=== PATIENT | male | born 1960 | race Caucasian/White ===

== ENCOUNTER 2016-07-05 16:27 | Observation (INO) | payer BC, OTHER ==
[~2016-07-05] VITALS: Ht 182.9 cm; Wt 100.0 kg
[2016-07-05] VITALS (7 sets, daily range): BP systolic 102–157; BP diastolic 74–106; PULSE 72–106; RESP 18–20; TEMP 97.9–98.3; O2SAT 96–97
[~2016-07-05 16:27] MED LIST: ATEN1TAB55 OR; CYCL-36 PO; IBUP600T26 PO; IPRAAER IN; PERC5TAB12 PO; embrel
[2016-07-05 17:11] LABS: AUTOMATED NEUTROPHIL # 3.9 TH/MM3 (1.8-7.7); BASOPHIL % 0.7 % (0.0-2.0); EOSINOPHIL # 0.2 TH/MM3 (0-0.4); EOSINOPHIL % 3.2 % (0.0-4.0); HEMATOCRIT 39.7 % (39.0-51.0); HEMO FLAGS DIFF FINAL; LYMPH % 27.2 % (9.0-44.0); LYMPHOCYTE # 1.7 TH/MM3 (1.0-4.8); MEAN CELL VOLUME 89.2 FL (80.0-100.0); MEAN CORPUSCULAR HEMOGLOBIN 31.1 PG (27.0-34.0); MEAN CORPUSCULAR HGB CONC 34.9 % (32.0-36.0); MONO % 6.7 % (0.0-8.0); NEUT % 62.2 % (16.0-70.0); PLATELET COUNT 205 TH/MM3 (150-450); RED BLOOD COUNT 4.46 MIL/MM3 (4.50-5.90); RED CELL DISTRIBUTION WIDTH 13.2 % (11.6-17.2); WHITE BLOOD COUNT 6.2 TH/MM3 (4.0-11.0)
--- NOTE | 2016-07-05 17:12 | PD ---
HPI Chief Complaint: Chest Pain Time Seen by Provider: 17:11 Travel History International Travel<30 days: No Contact w/Intl Traveler<30days: No Traveled to known affect area: No History of Present Illness HPI 56-year-old male with history of hypertension, left lobectomy status post spontaneous pneumothorax presents to the ED for evaluation of a 3 day history of chest pain, radiating to the back and shortness of breath. Onset at work. No alleviating or exacerbating factors reported. The patient denies palpitations, nausea, vomiting, abdominal pain, changes in bowel habits. Denies cough, fevers. Patient states that he has had medication changes recently from atenolol to amlodipine. He is followed by Dr. Rich whom he saw yesterday and referred him here today. PFSH Past Medical History Arthritis: Yes (HANDS) Asthma: Yes Blood Disorders: No Anxiety: No Depression: No Cancer: No Cardiovascular Problems: Yes Diminished Hearing: No Endocrine: No Gastrointestinal Disorders: No Genitourinary: No Hypertension: Yes Immune Disorder: No Implanted Vascular Access Dvce: No Neurologic: No Psychiatric: No Respiratory: Yes (pneumothorax 2010) Integumentary: Yes (PSORIASIS) Seizures: No PNEUMOCCOCAL Vaccine (Year): 2 Past Surgical History Abdominal Surgery: No Cardiac Surgery: No Neurologic Surgery: No Thoracic Surgery: Yes (LEFT UPPER LOBECTOMY BY TOM ) Other Surgery: Yes Social History Alcohol Use: No (18 YEARS SOBRIETY) Tobacco Use: No (30 year hx) Substance Use: No Allergies-Medications (Allergen,Severity, Reaction): Coded Allergies: Penicillin (Verified Allergy, Severe, 07/05/16) Uncoded Allergies: ALL CILLINS (Allergy, Severe, Rash, 02/08/04) Reported Meds & Prescriptions Reported Meds & Active Scripts Active Reported Stelara Inj (Ustekinumab Inj) 130 Mg/26 Ml Inj 90 Mg IM Q WEKS Ibuprofen 600 Mg Tab 600 Mg PO Q6H PRN Amlodipine (Amlodipine Besylate) 5 Mg Tab 5 Mg PO DAILY Atenolol 25 Mg Tab 25 Mg PO DAILY Review of Systems Except as stated in HPI: all other systems reviewed are Neg Physical Exam Narrative GENERAL: Well-nourished, well-developed white male in no acute distress. SKIN: Warm and dry. HEAD: Normocephalic. EYES: No scleral icterus. No injection or drainage. NECK: Supple, trachea midline. No JVD or lymphadenopathy. CARDIOVASCULAR: Regular rate and rhythm without murmurs, gallops, or rubs. 2+ DP and radial pulses bilaterally. No tenderness to palpation of the precordium. RESPIRATORY: Breath sounds clear to auscultation, diminished in the left upper lobe. No accessory muscle use. GASTROINTESTINAL: Abdomen soft, non-tender, nondistended. Active bowel sounds. MUSCULOSKELETAL: No cyanosis, or edema. Patient is ambulatory and moves extremities spontaneously. NEUROLOGICAL: Awake and alert. Cranial nerves II through XII intact. Motor and sensory grossly within normal limits. Five out of 5 muscle strength in all muscle groups. Normal speech. BACK: Nontender without obvious deformity. No CVA tenderness. No reproducible tenderness of the back. Data Data Last Documented VS Vital Signs Date Time Temp Pulse Resp B/P Pulse Ox O2 Delivery O2 Flow Rate FiO2 07/05/16 18:27 83 18 140/82 97 Nasal Cannula 2 07/05/16 16:31 98.1 Orders Electrocardiogram (07/05/16 ) Complete Blood Count With Diff (07/05/16 16:33) Basic Metabolic Panel (Bmp) (07/05/16 16:33) Ckmb (Isoenzyme) Profile (07/05/16 16:33) Troponin I (07/05/16 16:33) Prothrombin Time / Inr (Pt) (07/05/16 17:12) Act Partial Throm Time (Ptt) (07/05/16 17:12) Cta Thor Abd Aorta W Iv C W3d (07/05/16 ) CKMB (07/05/16 16:51) CKMB% (07/05/16 16:51) Clonidine (Catapres) (07/05/16 17:45) Morphine Inj (Morphine Inj) (07/05/16 18:00) Iohexol 350 Inj (Omnipaque 350 Inj) (07/05/16 18:16) Hepatic Functional Panel (07/05/16 18:42) Morphine Inj (Morphine Inj) (07/05/16 20:00) Place In Observation (07/05/16 20:23) Activity Bed Rest With Brp (07/05/16 20:23) Vital Signs (Adult) Q4H (07/05/16 20:23) Cardiac Rhythm .As Directed (07/05/16 20:23) ^ Notify Dr: Other .PRN (07/05/16 20:23) ^ Notify . Parameters (07/05/16 20:23) Resp Oxygen Nasal Cannula (07/05/16 ) Diet Npo (07/06/16 Breakfast) Ckmb (Isoenzyme) Profile (07/05/16 20:23) Ckmb (Isoenzyme) Profile (07/05/16 23:23) Troponin I (07/05/16 20:23) Troponin I (07/05/16 23:23) Electrocardiogram (07/05/16 20:23) Electrocardiogram (07/05/16 23:23) ^ Obtain (07/05/16 20:23) Sodium Chlor 0.9% 1000 Ml Inj (Ns 1000 M (07/05/16 20:23) Sodium Chloride 0.9% Flush (Ns Flush) (07/05/16 20:30) Sodium Chloride 0.9% Flush (Ns Flush) (07/05/16 21:00) Admit Order (Ed Use Only) (07/05/16 20:25) Labs Laboratory Tests Test 07/05/16 07/05/16 16:51 19:05 White Blood Count 6.2 TH/MM3 Red Blood Count 4.46 MIL/MM3 Hemoglobin 13.9 GM/DL Hematocrit 39.7 % Mean Corpuscular Volume 89.2 FL Mean Corpuscular Hemoglobin 31.1 PG Mean Corpuscular Hemoglobin 34.9 % Concent Red Cell Distribution Width 13.2 % Platelet Count 205 TH/MM3 Mean Platelet Volume 7.5 FL Neutrophils (%) (Auto) 62.2 % Lymphocytes (%) (Auto) 27.2 % Monocytes (%) (Auto) 6.7 % Eosinophils (%) (Auto) 3.2 % Basophils (%) (Auto) 0.7 % Neutrophils # (Auto) 3.9 TH/MM3 Lymphocytes # (Auto) 1.7 TH/MM3 Monocytes # (Auto) 0.4 TH/MM3 Eosinophils # (Auto) 0.2 TH/MM3 Basophils # (Auto) 0.0 TH/MM3 CBC Comment DIFF FINAL Differential Comment Sodium Level 139 MEQ/L Potassium Level 3.9 MEQ/L Chloride Level 107 MEQ/L Carbon Dioxide Level 25.4 MEQ/L Anion Gap 7 MEQ/L Blood Urea Nitrogen 23 MG/DL Creatinine 1.02 MG/DL Estimat Glomerular Filtration 75 ML/MIN Rate Random Glucose 95 MG/DL Calcium Level 9.5 MG/DL Total Bilirubin 0.4 MG/DL Direct Bilirubin 0.1 MG/DL Indirect Bilirubin 0.3 MG/DL Aspartate Amino Transf 21 U/L (AST/SGOT) Alanine Aminotransferase 29 U/L (ALT/SGPT) Alkaline Phosphatase 64 U/L Total Creatine Kinase 229 U/L Creatine Kinase MB 3.8 NG/ML Troponin I LESS THAN 0.02 NG/ML Total Protein 7.9 GM/DL Albumin 4.3 GM/DL Prothrombin Time 11.4 SEC Prothromb Time International 1.0 RATIO Ratio Activated Partial 32.4 SEC Thromboplast Time MDM Medical Decision Making Medical Screen Exam Complete: Yes Emergency Medical Condition: Yes Interpretation(s) EKG rate 97, sinus rhythm. CA interval 148, QRS 84. QTC 415ms. Normal axis. No ischemic changes. Reviewed by Dr. Kincaid. Differential Diagnosis Atypical chest pain versus spontaneous pneumothorax versus dissecting aneurysm versus ACS versus pneumonia versus other Narrative Course 56-year-old male with history of hypertension, left lobectomy status post spontaneous pneumothorax presents to the ED for evaluation of a 3 day history of chest pain, radiating to the back and shortness of breath. Onset at work yesterday. No alleviating or exacerbating factors reported. The patient denies palpitations, nausea, vomiting, abdominal pain, changes in bowel habits. Denies cough, fevers. Patient states that he has had medication changes recently from atenolol to amlodipine. He is followed by Dr. Rich whom he saw yesterday and referred him here today. Vitals reviewed. Patient is tachycardic, hypertensive 157/106 on presentation. Regular rate and rhythm without appreciable murmurs, rubs or gallops. No tenderness palpation of the precordium or the back. Diminished lung sounds in the left upper lobe area, breath sounds clear. No lower extremity edema. IV was established, patient was transferred to the medical pod for further evaluation. CBC: WBC 6.2. Hemoglobin 13.9 INR 1.0. CMP: BUN 23. Creatinine 1.02. No elevations of LFTs. Cardiac enzymes: Troponin less than 0.02. CK-MB 3.8. CTA abdominal and thoracic aorta: Intact aorta, coronary artery calcifications, fatty liver I discussed the patient, workup and plan of care with Dr. Mg who agrees. Discussed the results of the workup and plan of care with the patient and his who are amenable to observation admission. We'll admit the patient to the chest pain center for serial cardiac enzymes and EKGs, possible stress test. Please see chest pain center notes for disposition. Franny Davison Jul 05, 2016 17:12
[2016-07-05 17:27] LABS: ANION GAP 7 MEQ/L (5-15); BICARBONATE 25.4 MEQ/L (21.0-32.0); BLOOD UREA NITROGEN 23 MG/DL (7-18); CHLORIDE 107 MEQ/L (98-107); GLOMERULAR FILTRATION RATE 75 ML/MIN (>89); POTASSIUM 3.9 MEQ/L (3.5-5.1); SODIUM (NA) 139 MEQ/L (136-145)
[2016-07-05 17:31] LABS: CREATINE KINASE 229 U/L (39-308)
[2016-07-05] MEDS ORDERED: IBUP-232 PO (17:35)
[2016-07-05] MEDS ORDERED: ATEN25TA PO (17:35)
[2016-07-05] MEDS ORDERED: AMLO5TAB2 PO (17:35)
[2016-07-05] MEDS ORDERED: USTE1INJ IM (17:35)
[2016-07-05 17:44] LABS: CKMB 3.8 NG/ML (0.5-3.6)
[2016-07-05] MEDS ORDERED: cloNIDine HCL 0.2 MG TAB PO ONE (17:45)
[2016-07-05] MEDS ORDERED: MORPHINE SULFATE 4 MG/ML INJ IV PUSH ONE ×2 (18:00→20:00)
[2016-07-05] MEDS ORDERED: IOHEXOL 350 MG/ML 10 ML VIAL (for RAD DIAG) IV ONE (18:16)
--- NOTE | 2016-07-05 19:00 | RADRPT ---
EXAM DATE/TIME: 07/05/2016 18:14 [facility] COMPARISON: No previous studies available for comparison. INDICATIONS : Chest pain radiating to back for 3 days; hypertension and left lobectomy. IV CONTRAST: 99 cc Omnipaque 350 (iohexol) IV RADIATION DOSE: 17.10 CTDIvol (mGy) MEDICAL HISTORY : Hypertension. Pneumothorax. SURGICAL HISTORY : Lobectomy. ENCOUNTER: Initial ACUITY: 3 days PAIN SCALE: 5/10 LOCATION: chest TECHNIQUE: Volumetric scanning was performed using a multi-row detector CT scanner. The data was post processed with a variety of visualization algorithms including full volume maximum intensity pr ojection, multi-planar sliding thin slab reformation, curved planar reformation, and surface renderin g techniques. Using automated exposure control and adjustment of the mA and/or kV according to patie nt size, radiation dose was kept as low as reasonably achievable to obtain optimal diagnostic quality images. FINDINGS: The thoracic and abdominal aorta is normal in size. There are scattered atheroscleroti c calcifications throughout the arterial system. The great vessel origins are normal. Coronary yuki ry calcifications are present. The celiac, SMA, JULIO, and renal arteries appear grossly normal. The arterial structures within the pelvis are patent. There is some minimal hazy density seen at the posterior lung bases likely related to dependent atele ctasis. There is some decreased density in the liver likely related to some degree of fatty infiltra tion. The spleen, pancreas, adrenal glands and kidneys appear grossly normal. The bowel is unremark able. The pelvic structures are grossly intact. CONCLUSION: 1. The aorta is intact. 2. Coronary artery calcifications. 3. Some degree of suspected fatty infiltration of the liver. Titus Allred MD on July 05, 2016 at 18:51 Board Certified Radiologist. This report was verified electronically.
[2016-07-05 19:37] LABS: APTT (PATIENT) 32.4 SEC (24.3-30.1); PROTHROMBIN TIME - PATIENT 11.4 SEC (9.8-11.6)
[2016-07-05 19:51] LABS: INDIRECT BILIRUBIN 0.3 MG/DL (0.0-0.8); TOTAL BILIRUBIN ADULT 0.4 MG/DL (0.2-1.0)
[2016-07-05] MEDS ORDERED: SODIUM CHLORIDE 0.9% FLUSH 5 ML FLUSH IVF PRN (20:30)
[2016-07-05] MEDS: SODIUM CHLORIDE 0.9% FLUSH 5 ML FLUSH IVF SCH (21:00)
[2016-07-05] MEDS: SODIUM CHLOR 0.9% 1000 ML INJ 1,000 ML IV SCH (21:51)
[2016-07-05 22:29] LABS: CREATINE KINASE 175 U/L (39-308)
[2016-07-05 22:41] LABS: CKMB 3.3 NG/ML (0.5-3.6)
[2016-07-06] VITALS (9 sets, daily range): BP systolic 108–117; BP diastolic 66–77; PULSE 66–79; RESP 16–20; TEMP 97.6–98.4; O2SAT 97–98
[2016-07-06 01:43] LABS: CREATINE KINASE 150 U/L (39-308)
[2016-07-06 01:56] LABS: CKMB 2.8 NG/ML (0.5-3.6)
[2016-07-06] MEDS ORDERED: NITROGLYCERIN 0.4 MG SL 25 TABS/BTL SL ONE (02:58)
[2016-07-06] MEDS: MORPHINE SULFATE 4 MG/ML INJ IV PUSH PRN ×3 (03:22→11:03)
[2016-07-06] MEDS ORDERED: ACETAMINOPHEN 325 MG TAB PO PRN (03:30)
[2016-07-06] MEDS ORDERED: NITROGLYCERIN 0.4 MG SL 25 TABS/BTL SL PRN (03:30)
[2016-07-06] MEDS: SODIUM CHLOR 0.9% 1000 ML INJ 1,000 ML IV SCH (06:31)
[2016-07-06] MEDS: SODIUM CHLORIDE 0.9% FLUSH 5 ML FLUSH IVF SCH (07:31)
[2016-07-06] MEDS ORDERED: ATENOLOL 25 MG TAB PO SCH (11:00)
[2016-07-06] MEDS ORDERED: amLODIPine BESYLATE 5 MG TAB PO SCH (11:00)
--- NOTE | 2016-07-06 11:56 | EKG ---
Date Performed: 07/05/2016 Time Performed: 21:33:52 PTAGE: 56 years EKG: Sinus rhythm LEFT AXIS DEVIATION ABNORMAL ECG PREVIOUS TRACING : 07/05/2016 16.44 DOCTOR: Melchor Sharp Interpretating Date/Time 07/06/2016 11:55:34
--- NOTE | 2016-07-06 11:59 | EKG ---
Date Performed: 07/06/2016 Time Performed: 00:36:36 PTAGE: 56 years EKG: Sinus rhythm PROLONGED QT INTERVAL ABNORMAL ECG PREVIOUS TRACING : 07/05/2016 21.33 DOCTOR: Melchor Sharp Interpretating Date/Time 07/06/2016 11:58:54
--- NOTE | 2016-07-06 12:10 | TR ---
Date Performed: 07/06/2016 Time Performed: 10:32:06 DOCTOR: Melchor Sharp DRUG LIST: CLINICAL HISTORY: ATYPICAL CHEST PAIN REASON FOR TEST: ATYPICAL CHEST PAIN REASON FOR ENDING: OBSERVATION: CONCLUSION: C[place]orro protocol completed. Stopped sec to reaching target heart rate and leg fatigue. Maximum HQ=767 Target HR Achieved=85.0% Total Exercise Time=4:40 Max bp 166/80. No reprod chest pain /sob. Rare PACs were noted. Upsloping st segments, no changes to sugg ischemia. Normal bp response. F air exercise tolerance. No ectopy. Recovery quick and unremarkable. COMMENTS: CONCLUSION: Normal exercise treadmill. No evidence of ischemia.
--- NOTE | 2016-07-06 13:24 | HHI.DCPOC ---
Discharge Care Plan Diagnosis: (1) Musculoskeletal chest pain Goals to Promote Your Health * To prevent worsening of your condition and complications * To maintain your health at the optimal level Directions to Meet Your Goals Take your medications as prescribed Follow your dietary instruction Follow activity as directed Keep your appointments as scheduled Take your immunizations and boosters as scheduled If your symptoms worsen call your PCP, if no PCP go to Urgent Care Center or Emergency Room Smoking is Dangerous to Your Health. Avoid second hand smoke Call the 24-hour hour crisis hotline for domestic abuse at Mickie Morrison Jul 06, 2016 13:24
--- NOTE | 2016-07-06 14:22 | EKG ---
Date Performed: 07/05/2016 Time Performed: 16:44:52 PTAGE: 56 years EKG: Sinus rhythm BORDERLINE LEFT AXIS DEVIATION NONSPECIFIC T-WAVE ABNORMALITY BORDERLINE ECG Compared to prior angelo ng no significant change PREVIOUS TRACING : 07/23/2013 12.27 DOCTOR: Burak Jones Interpretating Date/Time 07/06/2016 14:19:49
--- NOTE | 2016-07-08 08:35 | MH ---
cc: MELCHOR SHARP DATE OF ADMISSION: 07/05/2016 DATE OF : 1960 CHIEF COMPLAINT Chest pain HISTORY OF PRESENT ILLNESS This is a 56-year-old patient presents to the emergency room with chest pain since he has known hypertension and asthma. The patient tells a story that Friday he had a primary care provider appointment with Dr. Chavarria at that time he notified his physician that he ran out of amlodipine therefore for the past 4-5 weeks he was taking atenolol [address] Chavarria told him at that time to quit taking the atenolol and he started him back on amlodipine 10 mg daily. The patient took this on Friday and on , however, he did not feel quite well called his primary care office and he was recommended to come into the office and that time his heart rate was 145. The patient denies any palpitations or rapid heart beat or pounding of his chest. He was told to go home take half of his atenolol and half of his amlodipine which was then 25 mg of atenolol and 5 mg amlodipine his heart rate did come down into the low 100s and his blood pressure also improved. On Friday he woke up and felt as though he was "beat up" He continued to work and after his shift. He called Dr. Chavarria office that he was instructed to come to the emergency room. He characterizes his chest pain in his substernal area that radiates to his back as a pressure as though someone is squeezing from his back and in his chest. This has been constant has not gone away, although has waxed and waned and intensity. He has some shortness of breath. No nausea or sweating. No known precipitating factors. Relieving factors, morphine helped "somewhat". PAST MEDICAL HISTORY: Hypertension spontaneous pneumothorax which led to a left lobectomy in 2009 asthma arthritis psoriasis PAST SURGICAL HISTORY: In addition to the lobectomy. He has had a right knee ACL repair. FAMILY HISTORY Mother had a first heart attack at age 45 and also had a trial double bypass. She had a at age 72. Father had high blood pressure, diabetes at age 68. No cardiovascular problems. The patient is aware. Brother also has diabetes and cardiac stents placed in his early 60s. 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 He is . He quit smoking tobacco 12 years ago, prior to that he smoked he says quite heavily for over 30 years also quit drinking alcohol 24 years ago. Denies any illegal drug use. Does have known hypertension and hyperlipidemia aside of being an developer [employer]. He does not do other have exercise activities, no known diabetes. PAST CARDIAC TESTING: He had stress test approximately 12 years ago for some chest discomfort and he follows with Dr. Baird. Since that time he has not seen a dog warden. CURRENT MEDICATIONS Include 1. Magnesium daily. 2. Multivitamin daily. 3. Atenolol 25 mg daily. 4. Amlodipine 5 mg daily. 5. Ibuprofen 600 mg q.6 h p.r.n. as needed. 6. Combivent p.r.n. 7. Lovastatin every other day. 8. Coq 10 daily. 9. Combivent as needed as needed. 10. Stetaba 90 mg IM every 12 weeks. He is unsure of his a lovastatin dose. ALLERGIES PENICILLIN HE IS NOT SURE OF HIS REACTION THIS WAS TOLD HE HAD REACTION A CHILD. REVIEW OF SYSTEMS GENERAL: He has been in his general state of health with no fatigue, recent illness, recent travel, fevers, chills, change in appetite. HEAD, EYES, EARS, NOSE, AND THROAT: No headache or visual changes or nasal congestion dysphagia. CARDIOVASCULAR SYSTEM: As stated above. Continues to have chest discomfort currently rated a 03/10. The most severe the chest discomfort has gotten this is 8/10. No dizziness. RESPIRATORY: No cough, wheeze, hemoptysis, asthma, has some sets of exertional shortness of breath since his lobectomy this is unchanged and stable. ABDOMEN: No bowel changes, diarrhea, constipation pain distension, blood in stool or dark stool. GENITOURINARY: No dysuria. EXTREMITIES: No lower leg edema or pain. MUSCULOSKELETAL: No change in range of motion. NEUROLOGIC: No difficulty balance, motor or sensory deficits. PSYCHIATRIC: Psych no anxiety or depression. SKIN: No concerning lesions or rashes. PHYSICAL EXAMINATION VITAL SIGNS: Temperature 98.2, pulse 75, respiratory 16, blood pressure 117/75 and pulse oximetry 97% on room air. GENERAL: He is alert, well-nourished, well-developed in no acute distress pleasant, male. HEAD, EYES, EARS, NOSE, AND THROAT: Head: Normocephalic, atraumatic. NECK: Neck is supple. Trachea is midline. CARDIOVASCULAR SYSTEM: He has a regular rate and rhythm without murmur, rub or gallop, No JVD. S1-S2. No S3. No S4. No carotid bruits. RESPIRATORY: He does not have any crackles, wheeze or rhonchi. Absent breath tones in the left upper lobe, otherwise clear throughout. ABDOMEN: Abdomen is soft, nontender, nondistended. Positive bowel tones. No masses. BACK: No Costovertebral angle tenderness. No scoliosis. EXTREMITIES: Pulses +2 x4. There is no dependent edema. MUSCULOSKELETAL: Normal tone x4 nontender. In the chest wall, no obvious deformities. NEUROLOGIC: Cranial nerves II through XII grossly intact. Motor strength 5/5. PSYCHIATRIC: Alert, oriented x3 has a pleasant affect appropriate to mood, insight and judgment. SKIN: Normal turgor, normal texture. Warm and dry. There is no rashes and a sluggish capillary refill. LABORATORY CBC is unremarkable. Chemistry is also unremarkable. Three sets of cardiac enzymes are all negative. Coagulation is unremarkable. CTA of his aorta has a conclusion of 1. Aorta is intact. 2. Coronary artery calcifications. 3. Some degree of suspicious fatty infiltration of the liver. 4. Three electrocardiograms show a normal sinus rhythm. The left axis deviation with no ST or T segment changes. ASSESSMENT/PLAN 1. Chest pain. Patient has been admitted to the chest pain center. He was ruled out with three sets of EKGs and cardiac enzymes and was monitored overnight. He will be seen and evaluated by Dr. Melchor Sharp. Discussed with the patient to the likelihood of having a stress test. He is agreeable to this plan of care, afterwards if his a treadmill stress test is unremarkable he will be later discharged home. 2. Hypertension. The patient's blood pressure has been within normal limits while in the emergency department while in the chest pain center. I have encouraged him to keep a blood pressure log and follow up with Dr. Chavarria as previously discussed regarding his change in medication. DICTATED BY: VKII Marc. Melchor Sharp MD [facility]/mohsen Ballesteros: 07/06/2016/11:02 AM /8:32 AM
== END 2016-07-06 13:55 | disposition home or self-care (01) ==
LOC: NEPA 16:27 → NEDA 20:27 → NEPGCP 21:21
PROVIDERS: ADMIT Internal Medicine Interventional Cardiology; ATTEND Internal Medicine Interventional Cardiology
DX: R07.89 Other chest pain (principal); M54.9 Dorsalgia, unspecified; R06.02 Shortness of breath; I10 Essential (primary) hypertension; J93.83 Other pneumothorax; M19.049 Primary osteoarthritis, unspecified hand; J45.909 Unspecified asthma, uncomplicated; L40.9 Psoriasis, unspecified; Z90.2 Acquired absence of lung [part of]; Z87.891 Personal history of nicotine dependence
CPT/HCPCS: 71275; 74174; 80048; 80076; 82550; 82552; 84484; 85025; 85610; 85730; 93005; 93017; 96374; 96376; 99285; G0378; J2270; J7030; Q9967

== ENCOUNTER 2017-03-06 11:48 | Emergency (ER) | payer BC ==
[~2017-03-06] VITALS: Ht 182.9 cm; Wt 107.2 kg
[~2017-03-06 11:48] MED LIST changes: +AMLO5TAB2 PO; -ATEN1TAB55 OR; +ATEN25TA PO; -CYCL-36 PO; +IBUP-232 PO; -IBUP600T26 PO; -IPRAAER IN; -PERC5TAB12 PO; +USTE1INJ IM; -embrel
[2017-03-06 11:51] VITALS: BP 153/99; PULSE 93; RESP 20; TEMP 98.9; O2SAT 97
[2017-03-06] MEDS ORDERED: MECLIZINE HCL 25 MG TAB PO ONE (13:30)
[2017-03-06 13:49] LABS: AUTOMATED NEUTROPHIL # 3.2 TH/MM3 (1.8-7.7); BASOPHIL # 0.1 TH/MM3 (0-0.2); EOSINOPHIL # 0.3 TH/MM3 (0-0.4); EOSINOPHIL % 5.7 % (0.0-4.0); HEMATOCRIT 39.2 % (39.0-51.0); HEMO FLAGS DIFF FINAL; LYMPH % 25.6 % (9.0-44.0); LYMPHOCYTE # 1.4 TH/MM3 (1.0-4.8); MEAN CELL VOLUME 87.6 FL (80.0-100.0); MEAN CORPUSCULAR HEMOGLOBIN 30.4 PG (27.0-34.0); MEAN CORPUSCULAR HGB CONC 34.7 % (32.0-36.0); MONO % 6.6 % (0.0-8.0); NEUT % 61.1 % (16.0-70.0); PLATELET COUNT 234 TH/MM3 (150-450); RED BLOOD COUNT 4.47 MIL/MM3 (4.50-5.90); RED CELL DISTRIBUTION WIDTH 11.8 % (11.6-17.2); WHITE BLOOD COUNT 5.4 TH/MM3 (4.0-11.0)
--- NOTE | 2017-03-06 13:55 | RADRPT ---
EXAM DATE/TIME: 03/06/2017 13:47 [facility] COMPARISON: No previous studies available for comparison. INDICATIONS : Fell 2 days ago, dizziness since then. RADIATION DOSE: 62.51 CTDIvol (mGy) MEDICAL HISTORY : Hypertension. SURGICAL HISTORY : Left upper lobectomy. ENCOUNTER: Initial ACUITY: 2 days PAIN SCALE: 0/10 LOCATION: cranial TECHNIQUE: Multiple contiguous axial images were obtained of the head. Using automated exposure control and adj ustment of the mA and/or kV according to patient size, radiation dose was kept as low as reasonably a chievable to obtain optimal diagnostic quality images. DICOM format image data is available electro nically for review and comparison. FINDINGS: CEREBRUM: The ventricles are normal for age. No evidence of midline shift, mass lesion, hemorrhage or acute in farction. No extra-axial fluid collections are seen. POSTERIOR FOSSA: The cerebellum and brainstem are intact. The 4th ventricle is midline. The cerebellopontine angle i s unremarkable. EXTRACRANIAL: The visualized portion of the orbits is intact. SKULL: The calvaria is intact. No evidence of skull fracture. CONCLUSION: Normal examination. Patricio Paniagua MD on March 06, 2017 at 13:53 Board Certified Radiologist. This report was verified electronically.
[2017-03-06 13:56] LABS: CHLORIDE 102 MEQ/L (98-107); SODIUM (NA) 135 MEQ/L (136-145)
[2017-03-06 13:59] LABS: ANION GAP 8 MEQ/L (5-15); BICARBONATE 24.9 MEQ/L (21.0-32.0); BLOOD UREA NITROGEN 19 MG/DL (7-18)
[2017-03-06 14:02] LABS: ALT (GPT) 32 U/L (12-78); AST (GOT) 33 U/L (15-37); GLOMERULAR FILTRATION RATE 80 ML/MIN (>89)
[2017-03-06 14:04] LABS: TOTAL BILIRUBIN ADULT 0.6 MG/DL (0.2-1.0)
[2017-03-06 14:05] VITALS: BP 155/86; PULSE 85; RESP 18; O2SAT 97
[2017-03-06 14:05] LABS: ALKALINE PHOSPHATASE 66 U/L (45-117)
--- NOTE | 2017-03-06 14:17 | PD ---
HPI Chief Complaint: Dizziness Time Seen by Provider: 13:12 Travel History International Travel<30 days: No Contact w/Intl Traveler<30days: No Traveled to known affect area: No History of Present Illness HPI This is a 56-year-old male who presents to the emergency department with dizziness that's been going on intermittently for 2 days. 2 nights ago he fell hitting his night stand. He felt like his legs went out from under him. He can 't remember if his dizziness started before after his fall. He hit his back but doesn't think he hit his head. Ever since then he's been having intermittent dizziness feeling like the room is spinning, worse when he changes position, severe. He hasn't vomited. He feels a little unsteady on his feet. He denies double vision, difficulty speaking or weakness. He's never had symptoms like this before. PFSH Past Medical History Arthritis: Yes (HANDS) Asthma: Yes Blood Disorders: No Anxiety: No Depression: No Heart Rhythm Problems: No Cancer: No Cardiac Catheterization: No Cardiovascular Problems: Yes High Cholesterol: No Congestive Heart Failure: No Diabetes: No Diminished Hearing: No Endocrine: No Gastrointestinal Disorders: No Genitourinary: No Hypertension: Yes Immune Disorder: No Implanted Vascular Access Dvce: No Neurologic: No Psychiatric: No Respiratory: Yes (pneumothorax 2010) Integumentary: Yes (PSORIASIS) Seizures: No Tetanus Vaccination: > 5 Years Influenza Vaccination: No PNEUMOCCOCAL Vaccine (Year): 2 Past Surgical History Abdominal Surgery: No Cardiac Surgery: No Coronary Artery Bypass Graft: No Neurologic Surgery: No Thoracic Surgery: Yes (LEFT UPPER LOBECTOMY BY TOM ) Other Surgery: Yes Social History Alcohol Use: No (18 YEARS SOBRIETY) Tobacco Use: No (30 year hx) Substance Use: No Allergies-Medications (Allergen,Severity, Reaction): Coded Allergies: penicillin G (Unverified Allergy, Severe, 03/06/17) Uncoded Allergies: ALL CILLINS (Allergy, Severe, Rash, 02/08/04) Reported Meds & Prescriptions Reported Meds & Active Scripts Active Reported Stelara Inj (Ustekinumab Inj) 130 Mg/26 Ml Inj 90 Mg IM Q WEKS Amlodipine (Amlodipine Besylate) 5 Mg Tab 5 Mg PO DAILY Review of Systems Except as stated in HPI: all other systems reviewed are Neg Physical Exam Narrative GENERAL:Well appearing, no acute distress SKIN: Focused skin assessment warm and dry. HEAD: Atraumatic. Normocephalic. EYES: Pupils equal and round. No injection or drainage. ENT: Moist mucous membranes. Right tympanic membrane is normal in appearance. NECK: Trachea midline. CARDIOVASCULAR: Regular rate and rhythm. No murmur appreciated. RESPIRATORY: Clear to auscultation. Breath sounds equal bilaterally. GASTROINTESTINAL: Abdomen soft, non-tender, nondistended. MUSCULOSKELETAL: No obvious deformities. NEUROLOGICAL: Awake and alert. No obvious cranial nerve deficits. No dysarthria or aphasia. No upper or lower extremity drift. No upper extremity ataxia. (+) Pat Hallpike to the right with horizontal nystagmus. PSYCHIATRIC: Appropriate mood and affect; insight and judgment normal. Data Data Last Documented VS Vital Signs Date Time Temp Pulse Resp B/P (MAP) Pulse Ox O2 Delivery O2 Flow Rate FiO2 03/06/17 14:05 85 18 155/86 (109) 97 Room Air 03/06/17 11:51 98.9 Orders Orders Complete Blood Count With Diff (03/06/17 13:27) Comprehensive Metabolic Panel (03/06/17 13:27) ^ Insert Iv (03/06/17 13:27) Ct Brain W/O Iv Contrast(Rout) (03/06/17 ) Meclizine (Antivert) (03/06/17 13:30) Labs Laboratory Tests Test 03/06/17 13:40 White Blood Count 5.4 TH/MM3 Red Blood Count 4.47 MIL/MM3 Hemoglobin 13.6 GM/DL Hematocrit 39.2 % Mean Corpuscular Volume 87.6 FL Mean Corpuscular Hemoglobin 30.4 PG Mean Corpuscular Hemoglobin Concent 34.7 % Red Cell Distribution Width 11.8 % Platelet Count 234 TH/MM3 Mean Platelet Volume 7.2 FL Neutrophils (%) (Auto) 61.1 % Lymphocytes (%) (Auto) 25.6 % Monocytes (%) (Auto) 6.6 % Eosinophils (%) (Auto) 5.7 % Basophils (%) (Auto) 1.0 % Neutrophils # (Auto) 3.2 TH/MM3 Lymphocytes # (Auto) 1.4 TH/MM3 Monocytes # (Auto) 0.4 TH/MM3 Eosinophils # (Auto) 0.3 TH/MM3 Basophils # (Auto) 0.1 TH/MM3 CBC Comment DIFF FINAL Differential Comment Blood Urea Nitrogen 19 MG/DL Creatinine 0.97 MG/DL Random Glucose 92 MG/DL Total Protein 7.9 GM/DL Albumin 4.1 GM/DL Calcium Level 8.6 MG/DL Alkaline Phosphatase 66 U/L Aspartate Amino Transf (AST/SGOT) 33 U/L Alanine Aminotransferase (ALT/SGPT) 32 U/L Total Bilirubin 0.6 MG/DL Sodium Level 135 MEQ/L Potassium Level 4.0 MEQ/L Chloride Level 102 MEQ/L Carbon Dioxide Level 24.9 MEQ/L Anion Gap 8 MEQ/L Estimat Glomerular Filtration Rate 80 ML/MIN MDM Medical Decision Making Medical Screen Exam Complete: Yes Emergency Medical Condition: Yes Interpretation(s) Afebrile, mild tachycardia, mild hypertension No leukocytosis Mild hyponatremia Renal function is normal Last [address] 03/06/17 0000 Signed Impressions: Service Date/Time: , March 06, 2017 13:47 - CONCLUSION: Normal examination. Patricio Paniagua MD Differential Diagnosis Intracranial hemorrhage, stroke, BPPV, vestibular neuritis, labyrinthitis, cerumen impaction Narrative Course This is a 56-year-old male who presents to the emergency department with dizziness that's been going on for several days. His dizziness is positional. It goes away when he stays still. He has a positive Villisca-Hallpike maneuver to the right. He has no ataxia on exam and no other obvious signs of central vertigo. CT scan was obtained given the patient's reported history of a fall which was reassuring. Labs are unremarkable. Patient was given meclizine and I performed an Steven maneuver. He seems improved on exam and is now able to move his head to the right without getting acutely vertiginous. He has an appointment with his primary care physician which I asked him to keep to ensure that he's improved tomorrow. If he feels worse I asked him to return to the emergency department. Patient will be discharged home. Diagnosis Primary Impression: BPPV (benign paroxysmal positional vertigo) Qualified Codes: H81.11 - Benign paroxysmal vertigo, right ear Patient Instructions: General Instructions Additional Instructions: If you develop severe worsening headache, persistent vomiting, numbness, weakness, difficulty walking or difficulty talking return to the emergency department immediately. Follow-up with your primary care physician tomorrow. Med/Other Pt SpecificInfo: Prescription(s) given Scripts Meclizine (Meclizine) 25 Mg Tab 25 MG PO TID Y for VERTIGO, #15 TAB 0 Refills Prov: Gail Contreras MD 03/06/17 Disposition: 01 DISCHARGE HOME Condition: Stable Gail Contreras MD Mar 06, 2017 14:17
[2017-03-06] MEDS ORDERED: MECL-62 PO (14:27)
[2017-03-06 14:45] VITALS: BP 150/82
== END 2017-03-06 14:48 | disposition home or self-care (01) ==
LOC: PHED 11:48
DX: H81.11 Benign paroxysmal vertigo, right ear (principal); I10 Essential (primary) hypertension; Z87.891 Personal history of nicotine dependence
CPT/HCPCS: 70450; 80053; 85025